=== PATIENT | male | born 1990 | race Caucasian/White ===

== ENCOUNTER 2018-08-02 17:42 | Emergency (ER) | payer OTHER ==
[2018-08-02] MEDS: CEFTRIAXONE 250 MG INJ IM (19:26)
[2018-08-02] MEDS: AZITHROMYCIN 500 MG TAB PO (19:26)
== END 2018-08-02 20:00 | disposition home or self-care (01) ==
LOC: FTE 17:42
DX: R30.0 Dysuria (principal)
CPT/HCPCS: 87591; 96372; 99284-25